=== PATIENT | female | born 1945 | race Two or more races ===

== ENCOUNTER 2024-11-11 12:05 | Emergency (ER) | payer OTHER ==
[~2024-11-11] VITALS: Ht 154.9 cm; Wt 69.9 kg
[2024-11-11] MEDS ORDERED: METFORMIN HCL500 M3 PO (12:20)
[2024-11-11] MEDS ORDERED: IRBESARTAN-HCT1 EACH PO (12:20)
[2024-11-11] MEDS ORDERED: LEVOTHYROXINE25 MCG PO (12:21)
[2024-11-11] MEDS ORDERED: PROTONIX40 M1 PO (12:21)
[2024-11-11] MEDS ORDERED: ATORVASTATIN CA10 MG PO (12:21)
[2024-11-11] MEDS ORDERED: METRONIDAZOLE/SODIUM CHLORIDE 500 MG/100 ML PIGGYBACK IV ONE ×2 (14:20→14:30)
[2024-11-11] MEDS ORDERED: 0.9 % SODIUM CHLORIDE 1,000 ML IV SCH (14:30)
[2024-11-11 14:52] LABS: BASO % 0.2 % (0.1-1.2); EOS # 0.02 (0.04-0.54); EOS % 0.2 % (0.7-7.0); HEMATOCRIT 37.9 % (34.1-44.9); LYMPH # 0.93 (1.18-3.74); LYMPH % 7.5 % (19.3-53.1); MEAN CORPUSCULAR HEMOGLOBIN 30.7 pg (25.6-32.2); MONO # 0.61 (0.24-0.82); MONO % 4.9 % (4.7-12.5); NEUT # 10.71 (1.56-6.13); NEUT % 86.9 % (34.0-71.1); PLATELET COUNT 349 K/uL (163-369); RED BLOOD COUNT 4.23 M/uL (3.93-5.22); RED CELL DISTRIBUTION WIDTH 13.7 % (11.6-14.4)
[2024-11-11 15:13] LABS: ALBUMIN 3.7 gm/dL (3.4-5.0); BILIRUBIN TOTAL 0.59 mg/dL (0.3-1.2); CALCIUM 8.7 mg/dL (8.5-10.1); CREATININE SERUM 0.94 mg/dL (0.55-1.02); GFR 57.74; GLOBULINA 4.3 G/DL (2.4-3.5); POTASSIUM 3.39 mEq/L (3.5-5.1)
[2024-11-11] MEDS ORDERED: DIPHENOXYLATE HCL/ATROPINE 1 UDTAB TABLET PO STA (17:52)
[2024-11-11] MEDS ORDERED: HYOSCYAMINE SULFATE 0.125 MG TAB.SUBL ONE (19:14)
[2024-11-11] MEDS ORDERED: HYOSCYAMINE SULFATE 0.125 MG TAB.SUBL SL ONE (19:15)
== END 2024-11-11 19:20 | disposition home or self-care (01) ==
LOC: ER 13:17
PROVIDERS: Emergency Medicine
DX: R19.7 Diarrhea, unspecified (principal); I10 Essential (primary) hypertension; E11.9 Type 2 diabetes mellitus without complications; Z79.84 Long term (current) use of oral hypoglycemic drugs
CPT/HCPCS: 36415; 96365; 96366; 99282; J3490; J7030